=== PATIENT | female | born 1990 | race African-American/Black ===

== ENCOUNTER 2016-05-25 08:59 | Emergency (ER) | payer SELFPAY ==
[~2016-05-25] VITALS: Ht 170.2 cm; Wt 120.0 kg
[~2016-05-25 08:59] MED LIST: CYCL-36 PO; IBUP800 PO
[2016-05-25 09:03] VITALS: BP 160/90; PULSE 118; RESP 24; TEMP 97.8; O2SAT 99
--- NOTE | 2016-05-25 10:35 | RADRPT ---
EXAM DATE/TIME: 05/25/2016 10:15 [facility] COMPARISON: No previous studies available for comparison. INDICATIONS : Right knee pain after legs gave out in the shower. MEDICAL HISTORY : None. SURGICAL HISTORY : None. ENCOUNTER: Initial ACUITY: 1 day PAIN SCORE: 10/10 LOCATION: Right knee on the medial and lateral sides of the patella. FINDINGS: Four view examination of the right knee demonstrates no evidence of fracture or dislocation. Bony mi neralization is normal. The articular surfaces are intact. The suprapatellar soft tissues have a no rmal configuration. CONCLUSION: No acute disease. Elías Tolentino MD on May 25, 2016 at 10:32 Board Certified Radiologist. This report was verified electronically.
--- NOTE | 2016-05-25 10:35 | PD ---
HPI Chief Complaint: Pain: Acute or Chronic Time Seen by Provider: 10:33 Travel History International Travel<30 days: No Contact w/Intl Traveler<30days: No Traveled to known affect area: No History of Present Illness HPI Patient's 26-year-old female presenting to emergency department evaluation of right knee pain. Patient states she is getting in the shower this morning and slipped falling on her butt subsequently hurting her right knee. Patient states she is unable to bear weight. When she bends it she hears a "popping" sound. She denies any numbness or tingling, she denies any back pain, hip pain , ankle pain, head injury or loss of consciousness. Patient reports her pain as an 8 out of 10 and states it just "hurts". She is not taken anything for the pain. The accident occurred approximately 7:30 this morning. PFSH Past Medical History Hx Anticoagulant Therapy: No ADHD: Yes Bipolar Disorder: Yes Anxiety: Yes Cancer: No Cardiovascular Problems: No Chemotherapy: No Cerebrovascular Accident: No Diabetes: No Diminished Hearing: No Psychiatric: Yes (ANXIETY) Respiratory: No Immunizations Current: Yes Seizures: No Thyroid Disease: No Ulcer: No ?: Not LMP: 05/10/16 : 1 Para: 1 Miscarriage: 0 : 0 Past Surgical History Hysterectomy: No Other Surgery: No Social History Alcohol Use: Yes (RARELY) Tobacco Use: No Substance Use: Yes (marijuana) Allergies-Medications (Allergen,Severity, Reaction): Coded Allergies: Lex (Verified Adverse Reaction, Severe, STS LOC, 05/25/16) Reported Meds & Prescriptions Reported Meds & Active Scripts Active Flexeril (Cyclobenzaprine HCl) 10 Mg Tab 10 Mg PO TID PRN 7 Days Ibuprofen 800 Mg Tab 800 Mg PO Q8H PRN 10 Days Review of Systems Except as stated in HPI: all other systems reviewed are Neg Musculoskeletal: Positive: Myalgias, Arthralgias, Pain, No: Edema Skin: No Change in Pigmentation Physical Exam Narrative GENERAL: Well-nourished, well-developed patient. SKIN: Warm and dry. HEAD: Normocephalic. EYES: No scleral icterus. No injection or drainage. NECK: Supple, trachea midline. No JVD or lymphadenopathy. CARDIOVASCULAR: Regular rate and rhythm without murmurs, gallops, or rubs. RESPIRATORY: Breath sounds equal bilaterally. No accessory muscle use. GASTROINTESTINAL: Abdomen soft, non-tender, nondistended. MUSCULOSKELETAL: No cyanosis, or edema. Mild tenderness to palpation on lateral aspect of right knee, no obvious deformity noted, positive pedal pulses , brisk less than 3 second capillary refill. Full range of motion with flexion and extension of right knee. BACK: Nontender without obvious deformity. No CVA tenderness. Data Data Last Documented VS Vital Signs Date Time Temp Pulse Resp B/P Pulse Ox O2 Delivery O2 Flow Rate FiO2 05/25/16 09:03 97.8 118 24 160/90 99 Orders Knee, Complete (4vws) (05/25/16 ) Ibuprofen (Motrin) (05/25/16 10:45) Crutches (05/25/16 10:32) MDM Medical Decision Making Medical Screen Exam Complete: Yes Emergency Medical Condition: Yes Interpretation(s) Vital Signs Date Time Temp Pulse Resp B/P Pulse Ox O2 Delivery O2 Flow Rate FiO2 05/25/16 09:03 97.8 118 24 160/90 99 Differential Diagnosis Sprain versus strain versus tear versus fracture versus other Narrative Course Patient is a 26-year-old female presenting to the emergency department evaluation of right knee pain that occurred approximately 3 hours ago as result of a slip and fall in the shower this morning. Patient is neurovascularly intact. Imaging ordered and pending. Ibuprofen ordered. Crutches ordered. Imaging of the right knee is negative for acute fracture or abnormality. Patient was encouraged to continue range of motion exercises, alternate heat and ice the affected area, avoid exacerbating activities, increase weightbearing as tolerated. Furthermore she was advised to follow-up with her primary care provider. Additionally patient to return to emergency department for any new or worsening symptoms. Patient verbalized understanding of these instructions. Patient is stable for discharge. Patient's blood pressure and heart rate were elevated upon arrival. Patient's blood pressure and heart rate were reassessed at 136/86 HR 81 Diagnosis Primary Impression: Knee pain, acute Qualified Code: M25.561 - Acute pain of right knee Referrals: Primary Care Physician 1 week Patient Instructions: General Instructions, Knee Exercises (GEN), Knee Pain (ED ) Additional Instructions: Follow-up with your primary doctor Take medications as directed Flexeril may make you drowsy, do not drive or operate machinery until you know how you react to this medication Alternate heat and ice to affected area, continue range of motion exercises, avoid bed rest, avoid exacerbating activities Increased weightbearing as tolerated Return to the emergency department for any new or worsening symptoms Med/Other Pt SpecificInfo: Prescription(s) given Scripts Cyclobenzaprine (Flexeril)10 Mg Tab10 Mg PO TID PRN (MUSCLE SPASM) 7 Days Ref 0 Prov:Mallory Gaines 05/25/16 Ibuprofen 800 Mg [id number] Mg PO Q8H PRN (Pain/Inflammation) 10 Days Ref 0 Prov:Mallory Gaines 05/25/16 Disposition: 01 DISCHARGE HOME Condition: Stable Mallory Gaines May 25, 2016 10:35
[2016-05-25] MEDS ORDERED: IBUP800T23 PO (10:43)
[2016-05-25] MEDS ORDERED: CYCL1TAB29 PO (10:43)
[2016-05-25] MEDS ORDERED: IBUPROFEN 800 MG TAB PO ONE (10:45)
== END 2016-05-25 11:01 | disposition home or self-care (01) ==
LOC: NEPB 08:59
DX: M25.561 Pain in right knee (principal); W18.2XXA Fall in (into) shower or empty bathtub, initial encounter; Y93.E1 Activity, personal bathing and showering; Y92.002 Bathroom of unspecified non-institutional (private) residence as the place of occurrence of the external cause
CPT/HCPCS: 73564; 99283; E0113

== ENCOUNTER 2016-08-06 21:05 | Emergency (ER) | payer SELFPAY ==
[~2016-08-06 21:05] MED LIST changes: -CYCL-36 PO; +CYCL1TAB29 PO; -IBUP800 PO; +IBUP800T23 PO
[2016-08-06 21:08] VITALS: BP 163/89; PULSE 65; RESP 14; TEMP 98.2; O2SAT 100
[2016-08-06 21:23] VITALS: BP 141/67; PULSE 77
[2016-08-06] MEDS ORDERED: IBUPROFEN 800 MG TAB PO ONE (22:00)
[2016-08-06] MEDS ORDERED: ONDANSETRON ODT 4 MG TAB PO ONE (22:00)
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
--- NOTE | 2016-08-07 00:20 | PD ---
Physical Exam Date Seen by Provider: August 06, 2016 Time Seen by Provider: 23:00 Narrative Patient signed out to me by PA at 11 PM, please see STEFANY carrasco for further details. Awaiting CAT scan to be released. Blood pressures are fairly unremarkable in the ER. Patient's is not having chest pains or any other symptoms. Last [address] 08/06/16 2151 Signed Impressions: Service Date/Time: Saturday, August 06, 2016 23:29 - CONCLUSION: Normal examination. Juan Antonio Thomas MD Patient to be released as previously discussed with STEFANY. Data Data Last Documented VS Vital Signs Date Time Temp Pulse Resp B/P Pulse Ox O2 Delivery O2 Flow Rate FiO2 08/06/16 21:23 77 141/67 08/06/16 21:08 98.2 [address] Brain W/O Iv Contrast(Rout) (08/06/16 21:51) Ed Urine Pregnancytest Poc (08/06/16 21:51) Ibuprofen (Motrin) (08/06/16 22:00) Ondansetron Odt (Zofran Odt) (08/06/16 22:00) MDM Medical Record Reviewed: Yes Supervised Visit with JULIANNA: Yes Diagnosis Primary Impression: Post-traumatic headache, not intractable Qualified Code: G44.319 - Acute post-traumatic headache, not intractable Referrals: Primary Care Physician Patient Instructions: General Instructions, Acute Headache (ED) Additional Instruction: Rest, hydrate. Return to normal, gentle activities as tolerated. Take [id number] ibuprofen as needed for headache. Follow-up with the primary care provider. Return to the ED for any urgent or emergent medical condition. Scripts No Active Prescriptions or Reported Meds Disposition: 01 DISCHARGE HOME Condition: Stable Angle Banks MD August 07, 2016 00:20
== END 2016-08-07 00:40 | disposition home or self-care (01) ==
LOC: NEPC 21:05
DX: F41.9 Anxiety disorder, unspecified (principal); F31.9 Bipolar disorder, unspecified; G44.319 Acute post-traumatic headache, not intractable; Y04.2XXA Assault by strike against or bumped into by another person, initial encounter; Y93.9 Activity, unspecified; Y92.9 Unspecified place or not applicable; Y99.9 Unspecified external cause status
CPT/HCPCS: 70450; 84703

== ENCOUNTER 2017-01-11 08:05 | Emergency (ER) | payer SELFPAY ==
[~2017-01-11] VITALS: Ht 165.1 cm; Wt 115.0 kg
[2017-01-11 08:07] VITALS: BP 140/81; PULSE 82; RESP 18; TEMP 98.7; O2SAT 99
[2017-01-11] MEDS ORDERED: IBUP-232 PO (08:55)
[2017-01-11] MEDS ORDERED: ZOFR4TAB3 SL (08:55)
--- NOTE | 2017-01-11 08:55 | PD ---
HPI Chief Complaint: GI Complaint Time Seen by Provider: 08:32 Travel History International Travel<30 days: No Contact w/Intl Traveler<30days: No Traveled to known affect area: No History of Present Illness HPI 26-year-old female complains of abdominal cramping and vaginal bleeding and vomiting. Patient states that she has history of irregular menstruation period for the past 6 years. Patient was seen by gynecology in the past for that. Patient started having intermittent low abdominal cramping with vaginal bleeding since last night. Patient states that her last menstruation period was 2 weeks ago. Patient states that that menstruation period was late. Patient is not sure whether she is . Patient denies any headache. Patient denies any chest pain or shortness of breath. Patient denies any dysuria or frequency. Patient denies any fever chills. PFSH Past Medical History Hx Anticoagulant Therapy: No ADHD: Yes Bipolar Disorder: Yes Anxiety: Yes Cancer: No Cardiovascular Problems: No Chemotherapy: No Cerebrovascular Accident: No Diabetes: No Diminished Hearing: No Hypertension: Yes Psychiatric: Yes (ANXIETY) Respiratory: No Immunizations Current: Yes Seizures: No Thyroid Disease: No Ulcer: No Influenza Vaccination: No ?: Unknown : 1 Para: 1 Miscarriage: 0 : 0 Past Surgical History Surgical History: No Previous Surgery Hysterectomy: No Other Surgery: No Social History Alcohol Use: Yes (OCC) Tobacco Use: Yes Substance Use: Yes (marijuana) Allergies-Medications (Allergen,Severity, Reaction): Coded Allergies: ziprasidone (Unverified Adverse Reaction, Severe, STS LOC, 01/11/17) Reported Meds & Prescriptions Reported Meds & Active Scripts Active Ibuprofen 600 Mg Tab 600 Mg PO TID Zofran Odt (Ondansetron Odt) 4 Mg Tab 4 Mg SL Q6HR PRN Review of Systems General / Constitutional: No: Fever Eyes: No: Visual changes HENT: No: Headaches Cardiovascular: No: Chest Pain or Discomfort Respiratory: No: Shortness of Breath Gastrointestinal: Positive: Vomiting, Abdominal Pain Genitourinary: Positive: Vaginal Bleeding, No: Dysuria Musculoskeletal: No: Pain Skin: No Rash Neurologic: No: Weakness Psychiatric: No: Depression Endocrine: No: Polydipsia Hematologic/Lymphatic: No: Easy Bruising Physical Exam Narrative GENERAL: Well-nourished, well-developed patient. SKIN: Focused skin assessment warm/dry. HEAD: Normocephalic. EYES: No scleral icterus. No injection or drainage. NECK: Supple, trachea midline. No JVD or lymphadenopathy. CARDIOVASCULAR: Regular rate and rhythm without murmurs, gallops, or rubs. RESPIRATORY: Breath sounds equal bilaterally. No accessory muscle use. GASTROINTESTINAL: Abdomen soft, nondistended. Mild diffuse tenderness over the abdomen. No rebound tenderness. No mass. MUSCULOSKELETAL: No cyanosis, or edema. BACK: Nontender without obvious deformity. No CVA tenderness. Data Data Last Documented VS Vital Signs Date Time Temp Pulse Resp B/P (MAP) Pulse Ox O2 Delivery O2 Flow Rate FiO2 01/11/17 08:07 98.7 82 18 140/81 (100) 99 Room Air Orders Orders Ondansetron Odt (Zofran Odt) (01/11/17 09:00) Ed Discharge Order (01/11/17 08:55) [facility] Medical Decision Making Medical Screen Exam Complete: Yes Emergency Medical Condition: Yes Differential Diagnosis Differential diagnosis including dysmenorrhea, viral syndrome, gastroenteritis. Narrative Course 26-year-old female with low abdominal pain and vaginal bleeding and vomiting. History of irregular menstruation period. Zofran 4 mg ODT. Diagnosis Primary Impression: Dysmenorrhea Patient Instructions: General Instructions Additional Instructions: Take medications as directed. 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 Return if persistent problem or worse. Med/Other Pt SpecificInfo: Prescription(s) given Scripts Ibuprofen (Ibuprofen) 600 Mg Tab 600 MG PO TID for Pain, #60 TAB 0 Refills Prov: Luis Angel MD 01/11/17 Ondansetron Odt (Zofran Odt) 4 Mg Tab 4 MG SL Q6HR Y for Nausea/Vomiting, #10 TAB 0 Refills Prov: Luis Angel MD 01/11/17 Disposition: 01 DISCHARGE HOME Condition: Stable Luis Angel MD Jan 11, 2017 08:55
[2017-01-11] MEDS ORDERED: ONDANSETRON ODT 4 MG TAB PO ONE (09:00)
[2017-01-12] MEDS ORDERED: DOXY100C PO (18:26)
== END 2017-01-11 09:52 | disposition home or self-care (01) ==
LOC: NEPE 08:05
DX: N94.6 Dysmenorrhea, unspecified (principal); I10 Essential (primary) hypertension; Z72.0 Tobacco use
CPT/HCPCS: 99283

== ENCOUNTER 2017-01-12 13:25 | Emergency (ER) | payer MEDICAID ==
[~2017-01-12] VITALS: Ht 165.1 cm; Wt 115.0 kg
[~2017-01-12 13:25] MED LIST changes: -CYCL1TAB29 PO; +IBUP-232 PO; -IBUP800T23 PO; +ZOFR4TAB3 SL
[2017-01-12 13:27] VITALS: BP 139/74; PULSE 97; RESP 18; TEMP 98.4; O2SAT 99
[2017-01-12 14:36] LABS: AUTOMATED NEUTROPHIL # 4.2 TH/MM3 (1.8-7.7); BASOPHIL % 0.6 % (0.0-2.0); EOSINOPHIL % 0.7 % (0.0-4.0); HEMATOCRIT 36.6 % (35.0-46.0); HEMO FLAGS DIFF FINAL; LYMPH % 30.8 % (9.0-44.0); LYMPHOCYTE # 2.1 TH/MM3 (1.0-4.8); MEAN CELL VOLUME 81.5 FL (80.0-100.0); MEAN CORPUSCULAR HEMOGLOBIN 27.2 PG (27.0-34.0); MEAN CORPUSCULAR HGB CONC 33.4 % (32.0-36.0); NEUT % 61.9 % (16.0-70.0); PLATELET COUNT 224 TH/MM3 (150-450); RED BLOOD COUNT 4.49 MIL/MM3 (4.00-5.30); RED CELL DISTRIBUTION WIDTH 13.9 % (11.6-17.2); WHITE BLOOD COUNT 6.8 TH/MM3 (4.0-11.0)
[2017-01-12 14:47] LABS: APTT (PATIENT) 29.1 SEC (24.3-30.1); BACTERIA, URINE OCC /hpf; BLOOD, URINE NEG (NEG); COMMENT (UR) CULT NOT INDICATED; CULTURE IF INDICATED CULT NOT INDICATED; GLUCOSE,URINE NEG (NEG); KETONE, URINE NEG (NEG); MUCUS URINE FEW /lpf (OCC); NITRITE,URINE NEG (NEG); PROTHROMBIN TIME - PATIENT 10.5 SEC (9.8-11.6); SQUAMOUS EPITHELIAL CELL URINE 4 /hpf (0-5); URINE COLOR YELLOW (YELLW/STRAW)
[2017-01-12 14:59] LABS: ANION GAP 7 MEQ/L (5-15); BLOOD UREA NITROGEN 14 MG/DL (7-18); CHLORIDE 106 MEQ/L (98-107); GLOMERULAR FILTRATION RATE 156 ML/MIN (>89); POTASSIUM 3.7 MEQ/L (3.5-5.1); SODIUM (NA) 139 MEQ/L (136-145)
[2017-01-12 15:02] LABS: BETA HCG QUANT LESS THAN 1 MIU/ML (0-5)
--- NOTE | 2017-01-12 16:02 | PD ---
HPI Chief Complaint: Abdominal Pain Time Seen by Provider: 15:33 Travel History International Travel<30 days: No Contact w/Intl Traveler<30days: No Traveled to known affect area: No History of Present Illness HPI 26-year-old female presents to the emergency department complaining of lower abdominal pain that started this morning. She has had some lower abdominal pain on and off for the past 3 months. She's also had irregular periods and she is complaining of having three menses in December. Has current vaginal bleeding for the past 2 days. History of irregular menses 6 years. Was seen yesterday here at [facility] with complaint of vomiting and was given Zofran. Reports continued vomiting 3 today. Reports irregular vaginal discharge prior to onset of her menses. Denies vaginal odor, lesions. Unknown exposure to STDs. Denies fevers, dysuria, change in stool. Denies lightheadedness, dizziness. Rates abdominal pain 9/10. Describes it as an aching sensation. Pain is worse with movement and better at rest. Denies history of abdominal surgeries. History of pelvic ultrasound and was normal per patient. Has tried following up with gynecology but was unable to get an appointment until March. Has not scheduled an appointment with health tech. Does not have an established primary care provider. Allergies to Geodon. History of iron deficiency anemia and migraine headaches. Has no other medical complaints. No other modifying factors or associated signs and symptoms. PFSH Past Medical History Hx Anticoagulant Therapy: No ADHD: Yes Bipolar Disorder: Yes Anxiety: Yes Cancer: No Cardiovascular Problems: No Chemotherapy: No Cerebrovascular Accident: No Diabetes: No Diminished Hearing: No Hypertension: Yes Psychiatric: Yes (ANXIETY) Respiratory: No Immunizations Current: Yes Seizures: No Thyroid Disease: No Ulcer: No ?: Unknown LMP: 01/11/17 : 1 Para: 1 Miscarriage: 0 : 0 Past Surgical History Surgical History: No Previous Surgery Hysterectomy: No Other Surgery: No Social History Alcohol Use: Yes (OCC) Tobacco Use: Yes Substance Use: Yes (marijuana) Allergies-Medications (Allergen,Severity, Reaction): Coded Allergies: ziprasidone (Unverified Adverse Reaction, Severe, STS LOC, 01/12/17) Reported Meds & Prescriptions Reported Meds & Active Scripts Active Doxycycline Hyclate 100 Mg Cap 100 Mg PO BID 14 Days Ibuprofen 600 Mg Tab 600 Mg PO TID Zofran Odt (Ondansetron Odt) 4 Mg Tab 4 Mg SL Q6HR PRN Review of Systems Except as stated in HPI: all other systems reviewed are Neg Physical Exam Narrative GENERAL: Well-nourished, well-developed black female patient, in no acute distress; afebrile, nontoxic-appearing SKIN: Warm and dry. HEAD: Atraumatic. Normocephalic. EYES: Pupils equal and round. No scleral icterus. No injection or drainage. ENT: Mucous membranes pink and moist. NECK: Trachea midline. No lymphadenopathy. CARDIOVASCULAR: Regular rate and rhythm. No murmur appreciated. RESPIRATORY: No accessory muscle use. Clear to auscultation. Breath sounds equal bilaterally. GASTROINTESTINAL: Obese. Abdomen soft, non-tender, nondistended. Mid pelvic region tender to palpation. Hepatic and splenic margins not palpable. No guarding, rigidity, rebound tenderness. PELVIC: Exam done in the presence of a nurse. Speculum exam reveals edematous and nonerythematous cervix with mucopurulent, foul-smelling discharge. Bimanual exam reveals no palpable masses or adnexa tenderness, no uterine tenderness. Positive cervical motion tenderness. BACK: No CVA tenderness. MUSCULOSKELETAL: No obvious deformities. No clubbing. No cyanosis. No edema. NEUROLOGICAL: Awake and alert. No obvious cranial nerve deficits. Motor grossly within normal limits. Normal speech. PSYCHIATRIC: Appropriate mood and affect; insight and judgment normal. Data Data Last Documented VS Vital Signs Date Time Temp Pulse Resp B/P (MAP) Pulse Ox O2 Delivery O2 Flow Rate FiO2 01/12/17 16:38 69 18 147/63 (91) 100 Room Air 01/12/17 13:27 98.4 Orders Orders Basic Metabolic Panel (Bmp) (01/12/17 13:41) Beta Hcg (Quant/Titer) (01/12/17 13:41) Complete Blood Count With Diff (01/12/17 13:41) Prothrombin Time / Inr (Pt) (01/12/17 13:41) Act Partial Throm Time (Ptt) (01/12/17 13:41) Urinalysis - C+S If Indicated (01/12/17 13:41) Ed Urine Pregnancytest Poc (01/12/17 13:41) Gc And Chlamydia Pcr (01/12/17 13:41) Wet Prep Profile (01/12/17 15:58) Lipase (01/12/17 15:58) Hepatic Functional Panel (01/12/17 15:58) Metronidazole (Flagyl) (01/12/17 18:30) Azithromycin Powd Pack (Zithromax Powd P (01/12/17 18:30) Ceftriaxone Inj (Rocephin Inj) (01/12/17 18:30) Lidocaine 1% Inj (50 Ml) (Xylocaine 1% I (01/12/17 18:30) Ed Discharge Order (01/12/17 18:27) Labs Laboratory Tests Test 01/12/17 14:00 01/12/17 17:45 White Blood Count 6.8 TH/MM3 Red Blood Count 4.49 MIL/MM3 Hemoglobin 12.2 GM/DL Hematocrit 36.6 % Mean Corpuscular Volume 81.5 FL Mean Corpuscular Hemoglobin 27.2 PG Mean Corpuscular Hemoglobin Concent 33.4 % Red Cell Distribution Width 13.9 % Platelet Count 224 TH/MM3 Mean Platelet Volume 9.3 FL Neutrophils (%) (Auto) 61.9 % Lymphocytes (%) (Auto) 30.8 % Monocytes (%) (Auto) 6.0 % Eosinophils (%) (Auto) 0.7 % Basophils (%) (Auto) 0.6 % Neutrophils # (Auto) 4.2 TH/MM3 Lymphocytes # (Auto) 2.1 TH/MM3 Monocytes # (Auto) 0.4 TH/MM3 Eosinophils # (Auto) 0.0 TH/MM3 Basophils # (Auto) 0.0 TH/MM3 CBC Comment DIFF FINAL Differential Comment Prothrombin Time 10.5 SEC Prothromb Time International Ratio 1.0 RATIO Activated Partial Thromboplast Time 29.1 SEC Urine Color YELLOW Urine Turbidity HAZY Urine pH 6.0 Urine Specific [place] 1.027 Urine Protein TRACE mg/dL Urine Glucose (UA) NEG mg/dL Urine Ketones NEG mg/dL Urine Occult Blood NEG Urine Nitrite NEG Urine Bilirubin NEG Urine Urobilinogen 2.0 MG/DL Urine Leukocyte Esterase TRACE Urine RBC 1 /hpf Urine WBC 2 /hpf Urine Squamous Epithelial Cells 4 /hpf Urine Bacteria OCC /hpf Urine Mucus FEW /lpf Microscopic Urinalysis Comment CULT NOT INDICATED Blood Urea Nitrogen 14 MG/DL Creatinine 0.57 MG/DL Random Glucose 103 MG/DL Calcium Level 9.0 MG/DL Sodium Level 139 MEQ/L Potassium Level 3.7 MEQ/L Chloride Level 106 MEQ/L Carbon Dioxide Level 26.0 MEQ/L Anion Gap 7 MEQ/L Estimat Glomerular Filtration Rate 156 ML/MIN Total Bilirubin 0.4 MG/DL Direct Bilirubin 0.1 MG/DL Indirect Bilirubin 0.3 MG/DL Aspartate Amino Transf (AST/SGOT) 11 U/L Alanine Aminotransferase (ALT/SGPT) 34 U/L Alkaline Phosphatase 56 U/L Total Protein 7.4 GM/DL Albumin 3.8 GM/DL Lipase 62 U/L Human Chorionic Gonadotropin, Quant LESS THAN 1 MIU/ML Clue Cells (Wet Prep) NONE SEEN Vaginal Trichomonas (Wet Prep) PRESENT Vaginal Yeast (Wet Prep) NONE SEEN MDM Medical Decision Making Medical Screen Exam Complete: Yes Emergency Medical Condition: Yes Medical Record Reviewed: Yes Differential Diagnosis Chlamydia, gonorrhea, Trichomonas, PID, dysmenorrhea, Narrative Course 26-year-old female with complaint of abnormal vaginal discharge, irregular menses and lower abdominal pain. Was seen here yesterday and was given Zofran for vomiting; did not have complaint of abdominal pain yesterday. Patient is afebrile and nontoxic-appearing. Denies fever. Reports vomiting. 1744: CBC, CMP, lipase, urinalysis unremarkable. Wet prep and chlamydia and gonorrhea pending. 1819: Positive Trichomonas. Negative clue cells and bacterial yeast. Chlamydia and gonorrhea pending. Patient will empirically treated with azithromycin, Rocephin, Flagyl in the ER. She has positive cervical motion tenderness. Suspecting PID. Doxycycline prescribed for home. Instructed patient to follow up with health tech. Instructed patient to follow up with primary care provider. Patient verbalizes understanding and agreement with treatment plan. Patient is medically cleared and stable for discharge. Discussed reasons to return to the emergency department. Patient agrees with treatment plan. The patients vital signs are stable and the patient is stable for outpatient follow-up and treatment. Patient discharged home, stable and in no acute distress. Diagnosis Primary Impression: Trichomoniasis Additional Impression: PID (pelvic inflammatory disease) Referrals: [facility] Primary Care Physician Patient Instructions: General Instructions, Sexually Transmitted Diseases (ED) , Trichomoniasis (ED) Additional Instructions: Avoid sexual activity for 14 days Avoid sexual activity with exposed partner/s until they have been treated and wait 14 days after treatment Inform all sexual partners within the past 3-6 months that they need to be evaluated and treated Use condoms every time you have sex Follow-up with primary care provider Follow-up with health tech Return to the emergency department immediately with worsening of symptoms Med/Other Pt SpecificInfo: Prescription(s) given Scripts Doxycycline Hyclate (Doxycycline Hyclate) 100 Mg Cap 100 MG PO BID for Infection for 14 Days, #28 CAP 0 Refills Prov: Carina Sandra 01/12/17 Disposition: 01 DISCHARGE HOME Condition: Stable Carina Sandra Jan 12, 2017 16:02
[2017-01-12 16:35] LABS: INDIRECT BILIRUBIN 0.3 MG/DL (0.0-0.8); TOTAL BILIRUBIN ADULT 0.4 MG/DL (0.2-1.0)
[2017-01-12 16:38] VITALS: BP 147/63; PULSE 69; RESP 18; O2SAT 100
[2017-01-12] MEDS ORDERED: DOXY100C PO (18:26)
[2017-01-12] MEDS ORDERED: metroNIDAZOLE 500 MG TAB PO ONE (18:30)
[2017-01-12] MEDS ORDERED: cefTRIAXone 250 MG VIAL IM ONE (18:30)
[2017-01-12] MEDS ORDERED: AZITHROMYCIN PWD FOR SUSP 1 GM PACKET PO ONE (18:30)
[2017-01-12] MEDS ORDERED: LIDOCAINE HCL 1% 50 ML VIAL IM ONE (18:30)
[2017-01-12 19:19] VITALS: BP 154/66; TEMP 98.4
[2017-01-12 23:01] LABS: CHLAMYDIA PCR INVALID (NOT DETECT); NEISSERIA PCR INVALID (NOT DETECT)
== END 2017-01-12 19:20 | disposition home or self-care (01) ==
LOC: NEPD 13:25
DX: N73.8 Other specified female pelvic inflammatory diseases (principal); A59.9 Trichomoniasis, unspecified; D50.9 Iron deficiency anemia, unspecified; F90.9 Attention-deficit hyperactivity disorder, unspecified type; F31.9 Bipolar disorder, unspecified; F41.9 Anxiety disorder, unspecified; I10 Essential (primary) hypertension; Z79.899 Other long term (current) drug therapy; Z88.8 Allergy status to other drugs, medicaments and biological substances
CPT/HCPCS: 80048; 80076; 81001; 83690; 84702; 84703; 85025; 85610; 85730; 87210; 87491; 87591; 96372; 99284; J0696

== ENCOUNTER 2017-01-30 14:18 | Emergency (ER) | payer SELFPAY ==
[~2017-01-30] VITALS: Ht 162.6 cm; Wt 113.0 kg
[~2017-01-30 14:18] MED LIST changes: +DOXY100C PO
[2017-01-30 14:32] VITALS: BP 145/66; PULSE 91; RESP 16; TEMP 97.7; O2SAT 100
[2017-01-30] MEDS ORDERED: CYCL10TA PO (15:04)
[2017-01-30] MEDS ORDERED: HYDR-3516 PO (15:04)
--- NOTE | 2017-01-30 15:04 | PD ---
HPI Chief Complaint: Foreign Body Time Seen by Provider: 15:01 Travel History International Travel<30 days: No Contact w/Intl Traveler<30days: No Traveled to known affect area: No History of Present Illness HPI Patient presents with concerns of a misplaced tampon last night. Additionally she reports pain radiating into her right buttock. Denies any misstep trip or fall. Denies any significant lower back pain. She is morbidly obese. Denies any gait abnormalities. PFSH Past Medical History Hx Anticoagulant Therapy: No ADHD: Yes Bipolar Disorder: Yes Anxiety: Yes Cancer: No Cardiovascular Problems: No Chemotherapy: No Cerebrovascular Accident: No Diabetes: No Diminished Hearing: No Hypertension: Yes Psychiatric: Yes (ANXIETY) Respiratory: No Immunizations Current: Yes Seizures: No Thyroid Disease: No Ulcer: No ?: Not LMP: 01/25/17 : 1 Para: 1 Miscarriage: 0 : 0 Past Surgical History Hysterectomy: No Other Surgery: No Social History Alcohol Use: Yes (OCC) Tobacco Use: Yes Substance Use: Yes (marijuana) Allergies-Medications (Allergen,Severity, Reaction): Coded Allergies: ziprasidone (Unverified Adverse Reaction, Severe, STS LOC, 01/30/17) Reported Meds & Prescriptions Reported Meds & Active Scripts Active Flexeril (Cyclobenzaprine HCl) 10 Mg Tab 10 Mg PO TID Hydrocodone-Acetaminophen 5-325 mg Tab 1 Tab PO Q4H PRN Review of Systems General / Constitutional: No: Fever Eyes: No: Visual changes HENT: No: Headaches Cardiovascular: No: Chest Pain or Discomfort Respiratory: No: Shortness of Breath Gastrointestinal: No: Abdominal Pain Genitourinary: No: Dysuria Musculoskeletal: No: Pain Skin: No Rash Neurologic: No: Weakness Psychiatric: No: Depression Endocrine: No: Polydipsia Hematologic/Lymphatic: No: Easy Bruising Physical Exam Narrative GENERAL: Well-nourished, well-developed patient. SKIN: Focused skin assessment warm/dry. HEAD: Normocephalic. EYES: No scleral icterus. No injection or drainage. NECK: Supple, trachea midline. No JVD or lymphadenopathy. CARDIOVASCULAR: Regular rate and rhythm without murmurs, gallops, or rubs. RESPIRATORY: Breath sounds equal bilaterally. No accessory muscle use. GASTROINTESTINAL: Abdomen soft, non-tender, nondistended. Vaginal exam vaginal mucosa is pink moist and healthy in appearance no tampon was located MUSCULOSKELETAL: No cyanosis, or edema. BACK: Nontender without obvious deformity. No CVA tenderness. Examination the lower back reveals no significant tenderness however she does have pain into the right buttocks with negative straight leg raise Data Data Last Documented VS Vital Signs Date Time Temp Pulse Resp B/P (MAP) Pulse Ox O2 Delivery O2 Flow Rate FiO2 01/30/17 14:32 97.7 91 16 145/66 (92) 100 MDM Medical Decision Making Medical Screen Exam Complete: Yes Emergency Medical Condition: Yes Differential Diagnosis Sciatic pain, lumbar sacral degenerative disc disease, vaginal foreign body Narrative Course assessment and plan discussed with patient and significant other bedside Diagnosis Primary Impression: Sciatica without back pain Qualified Codes: M54.31 - Sciatica, right side Patient Instructions: General Instructions Additional Instructions: Encourage nonsteroidal anti-inflammatories warm heat gentle stretching and strengthening and massage. Please provide a work note Scripts Cyclobenzaprine (Flexeril) 10 Mg Tab 10 MG PO TID for Muscle Spasm, #15 TAB 0 Refills Prov: Reece Leonard MD 01/30/17 Hydrocodone-Acetaminophen (Hydrocodone-Acetaminophen) 5-325 mg Tab 1 TAB PO Q4H Y for PAIN, #15 TAB 0 Refills Prov: Reece Leonard MD 01/30/17 Disposition: 01 DISCHARGE HOME Reece Leonard MD Jan 30, 2017 15:04
[2017-01-30] MEDS ORDERED: KETOROLAC TROMETHAMINE 60 MG/2 ML (IM) VIAL IM ONE (15:15)
== END 2017-01-30 15:25 | disposition home or self-care (01) ==
LOC: PHED 14:18
DX: M54.31 Sciatica, right side (principal); E66.01 Morbid (severe) obesity due to excess calories; Z72.0 Tobacco use
CPT/HCPCS: 96372; 99284; J1885

== ENCOUNTER 2017-06-11 08:26 | Emergency (ER) | payer OTHER ==
[~2017-06-11] VITALS: Ht 162.6 cm; Wt 117.3 kg
[~2017-06-11 08:26] MED LIST changes: +CYCL10TA PO; -DOXY100C PO; +HYDR-3516 PO; -IBUP-232 PO; -ZOFR4TAB3 SL
[2017-06-11 08:31] VITALS: BP 135/62; PULSE 90; RESP 16; TEMP 98; O2SAT 99
--- NOTE | 2017-06-11 08:58 | PD ---
HPI Chief Complaint: Back/ Neck Pain or Injury Time Seen by Provider: 08:56 Travel History International Travel<30 days: No Contact w/Intl Traveler<30days: No Traveled to known affect area: No History of Present Illness HPI Patient presents with complaints of lower back pain for 1 day. Denies any trauma misstep or fall. Aggravated by sitting or bending. Denies any gait abnormalities. Alleviated by standing. Pain 6 out of 10. PFSH Past Medical History Hx Anticoagulant Therapy: No ADHD: Yes Bipolar Disorder: Yes Anxiety: Yes Cancer: No Cardiovascular Problems: Yes (htn not taking meds) Chemotherapy: No Cerebrovascular Accident: No Diabetes: No Diminished Hearing: No Hypertension: Yes Psychiatric: Yes (ANXIETY) Respiratory: No Immunizations Current: Yes Seizures: No Thyroid Disease: No Ulcer: No Tetanus Vaccination: < 5 Years ?: Not LMP: 05/12/17 : 1 Para: 1 Miscarriage: 0 : 0 Past Surgical History Hysterectomy: No Other Surgery: No Social History Alcohol Use: Yes (OCC) Tobacco Use: Yes Substance Use: Yes (marijuana) Allergies-Medications (Allergen,Severity, Reaction): Coded Allergies: ziprasidone (Unverified Adverse Reaction, Severe, STS LOC, 06/11/17) Reported Meds & Prescriptions Reported Meds & Active Scripts Active No Active Prescriptions or Reported Medications Review of Systems General / Constitutional: No: Fever Eyes: No: Visual changes HENT: No: Headaches Cardiovascular: No: Chest Pain or Discomfort Respiratory: No: Shortness of Breath Gastrointestinal: No: Abdominal Pain Genitourinary: No: Dysuria Musculoskeletal: Positive: Pain Skin: No Rash Neurologic: No: Weakness Psychiatric: No: Depression Endocrine: No: Polydipsia Hematologic/Lymphatic: No: Easy Bruising Physical Exam Narrative GENERAL: Well-nourished, well-developed patient. SKIN: Focused skin assessment warm/dry. HEAD: Normocephalic. EYES: No scleral icterus. No injection or drainage. NECK: Supple, trachea midline. No JVD or lymphadenopathy. CARDIOVASCULAR: Regular rate and rhythm without murmurs, gallops, or rubs. RESPIRATORY: Breath sounds equal bilaterally. No accessory muscle use. GASTROINTESTINAL: Abdomen soft, non-tender, nondistended. MUSCULOSKELETAL: No cyanosis, or edema. BACK: Nontender without obvious deformity. No CVA tenderness. Examination of the lumbar sacral spine reveals no midline tenderness bilateral paraspinous pain, negative straight leg raise Data Data Last Documented VS Vital Signs Date Time Temp Pulse Resp B/P (MAP) Pulse Ox O2 Delivery O2 Flow Rate FiO2 06/11/17 08:31 98.0 90 16 135/62 (86) 99 Orders Orders Ketorolac Inj (Toradol Inj) (06/11/17 09:00) MDM Medical Decision Making Medical Screen Exam Complete: Yes Emergency Medical Condition: Yes Differential Diagnosis Lower back pain, degenerative disc disease, malingering Narrative Course Assessment plan discussed with patient and at bedside. Diagnosis Primary Impression: Lower back pain Qualified Codes: M54.5 - Low back pain Patient Instructions: General Instructions Additional Instructions: Encourage nonsteroidal anti-inflammatories warm heat gentle stretching strengthening and massage. Please provide work note. Follow-up with PCP. Return to emerge from with any onset of new symptoms. Med/Other Pt SpecificInfo: Prescription(s) given Scripts Hydrocodone-Acetaminophen (Hydrocodone-Acetaminophen) 5-325 mg Tab 1 TAB PO Q6H Y for PAIN for 3 Days, #7 TAB 0 Refills Prov: Reece Leonard MD 06/11/17 Cyclobenzaprine (Flexeril) 10 Mg Tab 10 MG PO TID for Muscle Spasm, #10 TAB 0 Refills Prov: Reece Leonard MD 06/11/17 Disposition: 01 DISCHARGE HOME Condition: Good Reece Loenard MD Jun 11, 2017 08:58
[2017-06-11] MEDS ORDERED: KETOROLAC TROMETHAMINE 60 MG/2 ML (IM) VIAL IM ONE (09:00)
[2017-06-11] MEDS ORDERED: HYDR-3516 PO (09:00)
[2017-06-11] MEDS ORDERED: CYCL10TA PO (09:00)
== END 2017-06-11 09:20 | disposition home or self-care (01) ==
LOC: PHED 08:26 → PHEFT 09:20
DX: M54.5 Low back pain (principal); F90.9 Attention-deficit hyperactivity disorder, unspecified type; F31.9 Bipolar disorder, unspecified; F41.9 Anxiety disorder, unspecified; I10 Essential (primary) hypertension; Z88.8 Allergy status to other drugs, medicaments and biological substances; Z72.0 Tobacco use
CPT/HCPCS: 96372; 99283; J1885

== ENCOUNTER 2017-08-02 23:31 | Emergency (ER) | payer MEDICAID, OTHER ==
[~2017-08-02] VITALS: Ht 162.6 cm; Wt 115.8 kg
[2017-08-02 23:42] VITALS: BP 138/63; PULSE 106; RESP 16; TEMP 98.3; O2SAT 100
[2017-08-03] MEDS ORDERED: PROMETHAZINE INJ 25 MG/ML VIAL IM ONE
[2017-08-03] MEDS ORDERED: MORPHINE SULFATE 4 MG/ML INJ IM ONE
[2017-08-03] MEDS ORDERED: KETOROLAC TROMETHAMINE 60 MG/2 ML (IM) VIAL IM ONE
[2017-08-03] MEDS ORDERED: NAPR500 PO (00:06)
[2017-08-03] MEDS ORDERED: NORC5TAB PO (00:06)
--- NOTE | 2017-08-03 00:06 | PD ---
HPI Chief Complaint: ENT Complaint Time Seen by Provider: 23:46 Travel History International Travel<30 days: No Contact w/Intl Traveler<30days: No Traveled to known affect area: No History of Present Illness HPI The patient is a 27-year-old female who presents to the emergency department for right ear and jaw pain. The patient was awakened from her sleep earlier tonight with pain located just anterior to the right ear that radiated into the right jaw. The pain is sharp, radiating to the jaw, and was associated with an episode of nausea and vomiting after she took Motrin for the pain. The patient denies any drainage from the right ear, tinnitus, or decreased hearing. She denies any recent swimming or flying. She denies any history of chronic ear disorders. The patient denies any sensitivity to the teeth on the right side, upper and lower, and denies any pain with mastication recently. She denies any associated fever. Symptoms are moderate. PFSH Past Medical History Hx Anticoagulant Therapy: No ADHD: Yes Bipolar Disorder: Yes Anxiety: Yes Cancer: No Cardiovascular Problems: Yes (htn not taking meds) Chemotherapy: No Cerebrovascular Accident: No Diabetes: No Diminished Hearing: No Hypertension: Yes Psychiatric: Yes (ANXIETY) Respiratory: No Immunizations Current: Yes Seizures: No Thyroid Disease: No Ulcer: No ?: Not LMP: 07/14/17 : 1 Para: 1 Miscarriage: 0 : 0 Past Surgical History Hysterectomy: No Other Surgery: No Social History Alcohol Use: Yes (OCC) Tobacco Use: Yes Substance Use: Yes (marijuana) Allergies-Medications (Allergen,Severity, Reaction): Coded Allergies: ziprasidone (Unverified Adverse Reaction, Severe, STS LOC, 08/02/17) Reported Meds & Prescriptions Reported Meds & Active Scripts Active Hydrocodone-Acetaminophen 5-325 mg Tab 1 Tab PO Q6H PRN 3 Days Flexeril (Cyclobenzaprine HCl) 10 Mg Tab 10 Mg PO TID Review of Systems Except as stated in HPI: all other systems reviewed are Neg General / Constitutional: No: Fever Eyes: No: Blurred Vision HENT: Positive: Earache, Other (As noted in the history of present illness), No : Headaches Gastrointestinal: Positive: Nausea, Vomiting, No: Abdominal Pain Skin: No Rash Physical Exam Narrative GENERAL: Awake, alert, pleasant 27-year-old female who appears her stated age and appears to be in moderate discomfort. SKIN: Focused skin assessment warm/dry. HEAD: Atraumatic. Normocephalic. EYES: Pupils equal and round. No scleral icterus. No injection or drainage. Fake eyelashes noted. ENT: No nasal bleeding or discharge. Mucous membranes pink and moist. TMs are translucent and EACs are clear. The patient has pain over the right TMJ joint. Pain is elicited with palpation and opening closing the jaw gets pressure. NECK: Trachea midline. No JVD. No tenderness of the paravertebral muscles. No cervical lymphadenopathy noted. GASTROINTESTINAL: Abdomen soft, non-tender, nondistended. MUSCULOSKELETAL: No obvious deformities. No clubbing. No cyanosis. No edema. NEUROLOGICAL: Awake and alert. No obvious cranial nerve deficits. Motor grossly within normal limits. Normal speech. PSYCHIATRIC: Appropriate mood and affect; insight and judgment normal. Data Data Last Documented VS Vital Signs Date Time Temp Pulse Resp B/P (MAP) Pulse Ox O2 Delivery O2 Flow Rate FiO2 08/02/17 23:42 98.3 106 16 138/63 (88) 100 Orders Orders Ketorolac Inj (Toradol Inj) (08/03/17 00:00) Morphine Inj (Morphine Inj) (08/03/17 00:00) Promethazine Inj (Phenergan Inj) (08/03/17 00:00) [facility] Medical Decision Making Medical Screen Exam Complete: Yes Emergency Medical Condition: Yes Medical Record Reviewed: Yes Differential Diagnosis Differential diagnosis includes otitis media, serous otitis, perforated tympanic membrane, TMJ, tic douloureux, dental abscess. Narrative Course The patient's pain and symptoms with physical finding suggest pain of the right TMJ. The patient did have vomiting and appeared to be in moderate discomfort, therefore, was administered Toradol 60 mg IM, morphine 4 mg IM, and Phenergan 25 mg IM. She will be discharged home on Naprosyn and [place]. She is advised to follow-up with a primary physician. Diagnosis Primary Impression: Temporomandibular joint (TMJ) pain Qualified Codes: M26.621 - Arthralgia of right temporomandibular joint Patient Instructions: General Instructions Additional Instructions: Medications as directed. Follow-up with your primary physician. Apply ice and/ or heat to the affected area. Return if symptoms worsen or progress. Med/Other Pt SpecificInfo: Prescription(s) given Scripts Naproxen (Naprosyn) 500 Mg Tab 500 MG PO BID for 10 Days, #20 TAB 0 Refills Prov: Duran Bray MD 08/03/17 Hydrocodone-Acetaminophen ([place]) 5 Mg-325 Mg Tab 1 TAB PO Q6H Y for PAIN, #12 TAB 0 Refills Prov: Duran Bray MD 08/03/17 Disposition: 01 DISCHARGE HOME Condition: Stable Duran Bray MD August 03, 2017 00:06
== END 2017-08-03 00:28 | disposition home or self-care (01) ==
LOC: PHED 23:31
DX: M26.621 Arthralgia of right temporomandibular joint (principal); H92.01 Otalgia, right ear; R11.2 Nausea with vomiting, unspecified; F90.9 Attention-deficit hyperactivity disorder, unspecified type; I10 Essential (primary) hypertension; Z72.0 Tobacco use; F12.90 Cannabis use, unspecified, uncomplicated
CPT/HCPCS: 96372; 99283; J1885; J2270; J2550